=== PATIENT | female | born 1975 | race Caucasian/White ===

== ENCOUNTER 2025-04-14 16:51 | Emergency (ER) | payer OTHER, SELFPAY ==
--- NOTE | 2025-04-14 17:04 | ED.GENADULT ---
HPI - General Adult General Date Seen: 04/14/25 Chief complaint: Abdominal Pain Stated complaint: abdominal pain Time Seen by Provider: 04/14/25 17:03 History of Present Illness HPI narrative: 50-year-old female brought to the ER today by EMS for evaluation of abdominal pain. Report from the patient is limited because of pain. She is able to tell me that she is started experiencing generalized abdominal pain this morning. She is from [address] [place] [address] but came to [place] to have lunch with a friend any way. Pain got worse this afternoon. She apparently called 911 from a gas station because she was having severe abdominal pain. She also tells me that she is on low-dose naltrexone for her fibromyalgia and so that she needs high doses of opiates to manage her pain. She is able to tell me that she has frequent small bowel obstructions. She says she has had many surgeries. She is not able to tell me which surgeries. When asked about medication allergies (thinking about what meds are safe to administer for her pain) she tells me she is allergic to morphine but that causes itchiness. She denies any other allergies. Not able to get further history because she is moaning in pain and rocking with holding her abdomen. Further history... Related Data Home Medications ?Medication ?Instructions ?Recorded ?Confirmed cetirizine 10 mg chewable tablet 10 mg PO DAILY 04/14/25 04/14/25 (Zyrtec) duloxetine 60 mg capsule,delayed 60 mg PO DAILY 04/14/25 04/14/25 release sprinkle gabapentin 300 mg capsule 300 mg PO DAILY 04/14/25 04/14/25 hydroxyzine HCl 25 mg tablet 25 mg PO QHS 04/14/25 04/14/25 lamotrigine 100 mg tablet 125 mg PO DAILY 04/14/25 04/14/25 meloxicam 15 mg tablet 15 mg PO DAILY 04/14/25 04/14/25 tizanidine 4 mg capsule 4 mg PO QHS 04/14/25 04/14/25 topiramate 100 mg capsule,extended 100 mg PO DAILY 04/14/25 04/14/25 release 24 hr Allergies Allergy/AdvReac Type Severity Reaction Status Date / Time Opioids - Morphine Analogues Allergy Intermediate Hives Verified 04/15/25 00:49 PFSH PFSH Social History Smoking Status: Unknown if ever smoked Non-prescribed substance use: denies use Exam Narrative: Exam Narrative: Constitutional: initially, she is moaning and writhing in pain. Difficult to get a very good history but after pain and nausea meds I am able to get a better history and physical. Overall,mushtaq ppears well-developed and well-nourished. Alert. Conversant. Non toxic. HENT: Head: Atraumatic. Nose: Nose normal. Mouth/Throat: Oral mucosa is clear and moist. no trismus. No trismus Eyes: Conjunctivae normal. EOM normal. Pupils equal, round, and reactive to light. No scleral icterus. Neck: Normal range of motion. Neck supple. No tracheal deviation present. Cardiovascular: Normal rate, regular rhythm. No gallop. No friction rub. No murmur heard. Symmetric radial artery pulses Pulmonary/Chest: Effort normal. No stridor. No respiratory distress. No wheezes. No rales. No rhonchi . No tenderness. Abdominal: Soft. Bowel sounds normal. Positive tympany and distension. No mass. Left lower quadrant and suprapubic> right lower quad tenderness. Minimal upper tenderness. No rebound. No guarding. Multiple healed abdominal incisions. No CVA tenderness Musculoskeletal: RUE: Normal range of motion. No tenderness. No deformity LUE: Normal range of motion. No tenderness. No deformity RLE: Normal range of motion. No edema. No tenderness. No deformity LLE: Normal range of motion. No edema. No tenderness. No deformity Neurological: Alert and oriented to person, place, and time. Normal strength. CN II-VII intact. No sensory deficit. GCS eye subscore is 4. GCS verbal subscore is 5. GCS motor subscore is 6. Normal coordination Skin: Skin is warm and dry. No rash noted. No pallor. Normal capillary refill. Psychiatric: Normal mood. Normal affect. Const: Vital Signs, click to edit/add: Vital Signs - 24 hr 04/14/25 17:19 04/14/25 18:45 04/14/25 21:21 Temperature 97.1 F L Pulse Rate 91 86 Pulse Rate [Pulse Oximeter] 80 Respiratory Rate 22 14 16 Blood Pressure 137/77 149/108 H Blood Pressure [Ri ght Upper Arm] 132/90 H Pulse Oximetry 99 99 95 Oxygen Delivery Me thod Room Air Room Air Room Air 04/14/25 23:44 04/14/25 23:45 04/15/25 00:00 Temperature Pulse Rate 81 84 80 Pulse Rate [Pulse Oximeter] Respiratory Rate Blood Pressure Blood Pressure [Ri ght Upper Arm] Pulse Oximetry 96 98 96 Oxygen Delivery Me thod Course Course ED Course: [address] Arango. + SBO with transition point in mid pelvis. Small bowel intussuception as transition point. Surgery Dr. Troy. requests labs and old records. no need for emergent surgery Reevaluation(s) Reevaluation #1: Recheck-still having some pain but much improved compared to arrival. Nausea had not improved after Zofran but has now improved quite a bit after droperidol. Patient feeling better. Able to get a better abdominal exam. Reevaluation #2: Recheck-discussed with General surgery again. She recommends transfer Recheck checked patient. She is resting more comfortably. No further vomiting. Reevaluation #3: Recheck test discussed with hospitalist at [facility]. Excepted. They asked me to also speak to General surgery Recheck-patient having increasing pain. Repeat Dilaudid ordered Recheck-discussed with general surgeon from [facility]. She agrees the transfer is appropriate. Patient is refusing NG tube placement so will have to be withheld. Denied any vomiting now for couple of hours (after received droperidol). Still having some pain. Additional Reevaluation(s): Recheck-transfers delayed due to time for bed assignment [facility]. Recheck -1245. Patient is finally transferred by EMS to [facility]. Vital Signs Vital signs: Initial Vital Signs Temperature 97.1 F L 04/14/25 17:19 Temperature Source Temporal Artery Scan 04/14/25 17:19 Pulse Rate 80 04/14/25 17:19 Respiratory Rate 22 04/14/25 17:19 Blood Pressure 132/90 H 04/14/25 17:19 Blood Pressure Mean 104 04/14/25 17:19 Pulse Oximetry 99 04/14/25 17:19 Oxygen Delivery Method Room Air 04/14/25 17:19 Vital Signs Temperature 97.1 F L 04/14/25 17:19 Pulse Rate 80 04/14/25 17:19 Respiratory Rate 22 04/14/25 17:19 Blood Pressure 132/90 H 04/14/25 17:19 Pulse Oximetry 99 10/28/25 17:19 Oxygen Delivery Method Room Air 04/14/25 17:19 Temperature 97.1 F L 04/14/25 17:19 Pulse Rate 80 04/15/25 00:00 Respiratory Rate 16 04/14/25 21:21 Blood Pressure 149/108 H 04/14/25 21:21 Pulse Oximetry 96 04/15/25 00:00 Oxygen Delivery Method Room Air 04/14/25 21:21 Medications Administered Medications: Discontinued Medications Generic Name Dose Route Start Last Admin Trade Name Freq PRN Reason Stop Dose Admin Droperidol 2.5 mg 04/14/25 17:39 04/14/25 17:44 Droperidol 2.5 Mg/Ml Inj IV 04/14/25 17:40 2.5 mg ONCE ONE Administration Hydromorphone HCl 1 mg 04/14/25 17:10 04/14/25 17:34 Hydromorphone 0.5 Mg/0.5 Ml Inj IVP 04/14/25 17:11 Not Given ONCE ONE Hydromorphone HCl 1 mg 04/14/25 17:22 04/14/25 17:23 Hydromorphone 0.5 Mg/0.5 Ml Inj IVP 04/14/25 17:23 1 mg ONCE ONE Administration Hydromorphone HCl 0.5 mg 04/14/25 23:09 04/14/25 23:12 Hydromorphone 0.5 Mg/0.5 Ml Inj IVP 0.5 mg Q1H PRN Administration Pain Sodium Chloride 1,000 mls @ 1,000 mls/hr 04/14/25 17:15 04/14/25 18:28 0.9 % Sodium Chloride 1000 Ml IV 04/14/25 18:14 Infused .Q1H JEANETTE Infusion Sodium Chloride 1,000 mls @ 150 mls/hr 04/14/25 20:45 04/14/25 20:45 0.9 % Sodium Chloride 1000 Ml IV 150 mls/hr .Q6H40M JEANETTE Administration Ondansetron HCl 4 mg 04/14/25 17:10 04/14/25 17:30 Ondansetron 2 Mg/Ml Inj IVP 04/14/25 17:11 4 mg ONCE ONE Administration Medical Decision Making [facility] Narrative Medical decision making narrative: 50-year-old female presenting to the ER today for generalized abdominal pain and vomiting. She has a past surgical history including Tello-en-Y gastric bypass, done 20 years ago at [facility] in [place]. She also has had 3 C sections, cholecystectomy, 1 large laparotomy for previous bowel obstruction, possible bowel resection. She has also had an abdominal wall surgery. She also apparently has a history of small-bowel obstructions in the past. She is concerned that her presenting symptoms might be another small bowel obstruction. The differential diagnosis of abdominal pain includes: Appendicitis, Bowel Obstruction, Ulcer, Ischemia, Cholecystitis, Diverticulitis, Pancreatitis, UTI, kidney stone, Enteritis/Colitis, amongst many other etiologies. []Laboratory testing does not reveal a cause for the patient's pain. Laboratory workup is reassuring. Lipase is mildly elevated but I think that is likely due to repetitive vomiting rather than acute pancreatitis since she does not have any radiologic findings of pancreatitis and there is an alternative explanation for pain, namely bowel obstruction. CT scan does confirm small bowel obstruction. No evidence for perforation, free air, abscess, or bowel ischemia at this time. Discussed with radiologist by phone in the indicate they think it is of small bowel obstruction related to intussusception with a transition point in the pelvis. I did review this with General surgery who reviewed the images as well and they wonder if this is actually a bowel obstruction related to and previous bowel anastomotic site. General surgery confirms that no emergent surgery is necessary. However, general surgery recommends transfer to a larger facility where bariatric surgery service is available for consultation. Given the patient's surgical history, if this obstruction progresses to need operation, she would be very complex operation and that would be best done at a larger center Discussed recommendation of General surgery with the patient. She actually lives in [place], [place]. She does not really think it will be helpful to transfer back there because she says typically when she has a small bowel obstruction no clear she gets [place] way [place] to [place]. She would agree with transfer [facility] a [facility] as that is at least a little bit closer to home for her. Ideally we would look for a facility in the [facility] immature We did contact [facility] and there was no availability. There is also no availability at other hospitals in these [facility], [place] including [place]. Through the [facility] we were able to get an available bed [facility]. Patient is discussed with the hospitalist at [facility] and then with a general surgeon evidently both agree that transferred [facility] is reasonable. Plan will be to transfer by EMS for comfort, probable need for repeat pain meds and route, NG tube suction, IV hydration. Lab Data Labs: Lab Results 04/14/25 04/14/25 Range/Units 17:44 18:50 WBC 5.90 (4.50-11.00) K/uL RBC 4.01 (4.00-5.20) m/uL Hgb 12.3 (12.0-16.0) gm/dL Hct 38.0 (33.0-51.0) % MCV 95 (80-100) fL MCH 31 (26-34) pg MCHC 32 (32-36) gm/dL RDW Coeff of [place]lin 12.8 (11.5-15.5) % Plt Count 235 (140-440) K/uL Neut % (Auto) 82.5 H (42.0-72.0) % Lymph % (Auto) 5.3 L (20-44) % Cocke % (Auto) 8.3 (0.0-11.0) % Eos % (Auto) 2.7 (0.0-7.0) % Baso % (Auto) 0.5 (0.0-3.0) % Neut # (Auto) 4.90 (1.7-7.0) K/uL Lymph # (Auto) 0.30 L (0.90-2.90) K/uL Cocke # (Auto) 0.50 (0.00-0.90) K/UL Eos # (Auto) 0.16 (0.00-0.50) K/uL Baso # (Auto) 0.03 (0.00-0.30) K/uL Abs Immat Gran (auto) 0.04 (0.00-0.30) K/uL Imm/Tot Granulo (auto) 0.7 % Sodium 141 (135-149) mmol/L Potassium 4.0 (3.6-5.1) mmol/L Chloride 109 (96-114) mmol/L Carbon Dioxide 25 (20-32) mmol/L Anion Gap 7 (7-15) mEq/L BUN 12 (7-30) mg/dL Creatinine 0.8 (0.5-1.5) mg/dL Estimated Creat Clear 74.02 Estimated GFR 89 ml/min Glucose 96 (60-115) mg/dL Lactate 0.6 (0.5-1.9) mmol/L Calcium 9.4 (8.4-10.6) mg/dL Total Bilirubin 0.8 (0.1-1.5) mg/dL AST 44 H (12-35) U/L ALT 51 H (4-35) U/L Alkaline Phosphatase 82 (40-150) U/L C-Reactive Protein 0.7 (0.5-1.0) mg/dL Total Protein 6.6 (6.0-8.3) g/dL Albumin 3.8 (3.3-5.0) g/dL Lipase 731 H (23-300) U/L HCG, Qual Negative (Negative) Urine Color Yellow (Yellow) Urine Appearance Clear (Clear) Urine pH 6.5 (5.0-8.5) Ur Specific [place] 1.015 (1.000-1.030) Urine Protein Negative (Negative) Urine Glucose (UA) Negative (Negative) Urine Ketones Trace A (Negative) Urine Blood Negative (Negative) Urine Nitrite Negative (Negative) Urine Bilirubin Negative (Negative) Urine Urobilinogen 0.2 (0.2-1.0) Ur Leukocyte Esterase Negative (Negative) Urine RBC 0-2 (0-2) Urine WBC 0-2 (0-5) Ur Squamous Epith Cells None (None-Few) Urine Bacteria None (None) Ethyl Alcohol < 0.01 (0.01-0.03) % Imaging Data CT scan - abdomen: Attestation: I have reviewed the pertinent imaging results. Radiologist's impression: IMPRESSION: 1. Distal small bowel obstruction with transition point within the pelvis, likely related to intussusception involving ileal or jejunal bowel loops. Findings were communicated to Dr. Hutchinson at 6:38 p.m. on 04/14/2025. 2. Minimal free fluid in pelvis. 3. Severe colonic fecal retention. 4. Nonobstructing left lower pole nephrolithiasis. Discharge Plan Discharge Prescriptions: No Action gabapentin 300 mg capsule 300 mg PO DAILY meloxicam 15 mg tablet 15 mg PO DAILY hydroxyzine HCl 25 mg tablet 25 mg PO QHS cetirizine [Zyrtec] 10 mg tablet,chewable 10 mg PO DAILY tizanidine 4 mg capsule 4 mg PO QHS topiramate 100 mg capsule,extended release 24hr 100 mg PO DAILY duloxetine 60 mg capsule, delayed rel sprinkle 60 mg PO DAILY lamotrigine 100 mg tablet 125 mg PO DAILY Follow Up/Referrals: Provider,Not a Local [Primary Care Provider, Family Practice]
--- NOTE | 2025-04-14 17:10 | CRLHL7_ITS ---
For Patients: As a result of the Century Cures Act, medical imaging exams and procedure reports are released immediately into your electronic medical record. You may view this report before your referring provider. If you have questions, please contact your health care provider. INDICATION: Generalized abdominal pain, history of small-bowel obstruction, fibromyalgia. TECHNIQUE: CT abdomen and pelvis acquired with 69 cc Isovue 370 IV contrast. COMPARISON: None. FINDINGS: Lower chest: Unremarkable. Liver: Normal in size and attenuation. No suspicious masses. Gallbladder and bile ducts: Status post cholecystectomy. Pancreas: No mass or inflammation. Spleen: Normal in size. No masses. Adrenal glands: No suspicious mass. Kidneys: Bilateral kidneys are normal in size with symmetric enhancement. Nonobstructing left lower pole nephrolithiasis measuring 4 millimeter. No hydronephrosis. GI tract: There is significant dilatation of the small bowel loops with a transition point appears within the pelvis. There appears to be a small bowel small bowel intussusception, possibly involving the ileal or jejunal bowel loops as seen on series number 4/66. Severe colonic fecal retention is identified. Postsurgical changes of bowel loops in the left mid abdomen is seen. Vasculature: Abdominal aorta is normal in caliber. Minimal atherosclerosis. Lymph nodes: No lymphadenopathy. Peritoneum/Abdominal Wall: No free air or significant free fluid. Pelvis: Small volume of free fluid in the pelvis. No free air. Bones: Spinal fusion at L4-5 level. Multilevel degenerative changes of the lumbar spine. IMPRESSION: 1. Distal small bowel obstruction with transition point within the pelvis, likely related to intussusception involving ileal or jejunal bowel loops. Findings were communicated to Dr. Hutchinson at 6:38 p.m. on 04/14/2025. 2. Minimal free fluid in pelvis. 3. Severe colonic fecal retention. 4. Nonobstructing left lower pole nephrolithiasis. Please note that all CT scans at this facility use dose modulation, iterative reconstruction, and/or weight-based dosing when appropriate to reduce radiation dose to as low as reasonably achievable. Dictated by Kun Arango MD @ 04/14/2025 6:41:22 PM (Electronically Signed)
[2025-04-14 17:19] VITALS: BP 132/90; PULSE 80; RESP 22; TEMP 36.2; O2SAT 99; BMI 23.3
[2025-04-14] MEDS: ONDANSETRON 2 MG/ML inj 4 MG IVP (17:30)
[2025-04-14 17:48] LABS: Lactate* 0.6 mmol/L (0.5-1.9)
[2025-04-14 17:51] LABS: Hematocrit* 38.0 % (33.0-51.0); Hemoglobin* 12.3 gm/dL (12.0-16.0); Immature Granulocytes Abs Auto 0.04 K/uL (0.00-0.30); Immature Granulocytes Pct Auto 0.7 %; Mean Corpuscular HGB Conc 32 gm/dL (32-36); Mean Corpuscular Hemoglobin 31 pg (26-34); Mean Corpuscular Volume 95 fL (80-100); RDW Coefficient of Variation % 12.8 % (11.5-15.5); Red Blood Count* 4.01 m/uL (4.00-5.20); White Blood Count* 5.90 K/uL (4.50-11.00)
[2025-04-14 17:52] LABS: Lymphocytes Absolute Auto 0.30 K/uL (0.90-2.90)
[2025-04-14 17:53] LABS: Slide Review Reflex No
[2025-04-14 18:28] LABS: Albumin* 3.8 g/dL (3.3-5.0); Chloride* 109 mmol/L (96-114); Potassium* 4.0 mmol/L (3.6-5.1); Sodium* 141 mmol/L (135-149)
[2025-04-14 18:30] LABS: Alanine Aminotransferase* 51 U/L (4-35); Aspartate Amino Transferase* 44 U/L (12-35); Blood Urea Nitrogen* 12 mg/dL (7-30); Creatinine* 0.8 mg/dL (0.5-1.5); Est. Creatinine Clearance* 74.02; Estimated Glomerular Filt Rate 89 ml/min
[2025-04-14 18:31] LABS: Alkaline Phosphatase* 82 U/L (40-150); Anion Gap 7 mEq/L (7-15); Bilirubin Total* 0.8 mg/dL (0.1-1.5); Calcium* 9.4 mg/dL (8.4-10.6); Carbon Dioxide* 25 mmol/L (20-32); Glucose* 96 mg/dL (60-115); Total Protein* 6.6 g/dL (6.0-8.3)
[2025-04-14 18:45] VITALS: BP 137/77; PULSE 91; RESP 14; O2SAT 99
[2025-04-14 19:03] LABS: Ethanol* < 0.01 % (0.01-0.03)
[2025-04-14 19:20] LABS: HCG Qualitative Serum* Negative (Negative)
--- OUTSIDE RECORDS SUMMARY | 2025-04-14 19:52 | XMS_ITS | Clinical Summary ---
Author Organization [facility] Address [address] [place] [address] Care Team Providers Care Rigging Up Man Name Role Phone Elsewhere, Pcp Primary Care Provider Unavailabl e Source Comments Patient records contain information from all sites at [facility]. For routine questions regarding patient records, call [phone] during business hours, M-F 8:00 AM - 5:00 PM Central Time. Record requests for emergency care only can be directed to [phone] at any time.[facility] Allergies Active Allergy Reactions Criticality Noted Date Comments Morphine Itching 06/27/2012 verified Medications * This document contains information received from the source organization and may not represent a complete record from that organization. albuterol (for_PROVENTIL HFA,VENTOLIN HFA) 90 mcg/actuation inhaler albuterol 90 mcg/inh inhalation aerosol with adapter 08/25/19 10 Active cetirizine (ZyrTEC) 10 mg tablet Take 1 tablet by mouth daily as needed. 08/05/19 10 Active fluticasone (for_FLONASE) 50 mcg/actuation nasal spray 2 sprays daily as needed. 08/25/19 10 Active omeprazole (for_PriLOSEC) 40 mg capsule Take by mouth every morning before breakfast. 08/25/19 10 Active meloxicam (for_MOBIC) 15 mg tablet Take 15 mg by mouth daily. 1 04/25/20 17 Active gabapentin (NEURONTIN) 300 mg capsule Take 600 mg by mouth 4 (four) times a day. 2 11/01/19 19 Active tiZANidine (ZANAFLEX) 4 mg tablet Take 8 mg by mouth 3 (three) times a day as needed for muscle spasms. 0 11/01/19 19 Active nystatin (MYCOSTATIN) 100,000 unit/gram cream PATRICIA TOPICALLY TO BODY FOLDS BID DURING FLARES 3 11/27/19 19 Active RESTASIS 0.05 % ophthalmic emulsion Administer 1 drop into both eyes 2 (two) times a day. 6 04/09/20 19 Active topiramate (TOPAMAX) 100 mg tablet 100 mg 4 (four) times a day. 2 03/25/20 19 Active nitrofurantoin monohydrate (MACROBID) 100 mg capsule Take 100 mg by mouth daily. 01/27/20 21 Active Flovent HFA 44 mcg/actuation inhaler Inhale 1 puff 2 (two) times a day as needed. 02/21/20 21 Active ProChamber spacer See Admin Instructions. 06/22/19 22 Active naltrexone HCl (NALTREXONE ORAL) Take 6 mg by mouth every morning. 11/19/19 22 Active methylPREDNISo lone (MEDROL DOSEPAK) 4 mg tablet See Admin Instructions. follow package directions 11/02/19 23 Active ferrous sulfate 325 mg (65 mg iron) tablet Take 325 mg by mouth daily. 09/14/19 24 Active pantoprazole (Protonix) 40 mg EC tablet 40 mg. 01/13/20 25 Active DULoxetine (Cymbalta) [address] capsule Take 1 capsule by mouth daily. 04/06/20 25 Active LORazepam (Ativan) 1 mg tabletIndicati ons:Anxiety Generalized Disorder Take 0.5-1 tablets (0.5-1 mg total) by mouth daily as needed for anxiety (sleep). Must last 30 days. 15 tablet 04/10/20 25 Active buPROPion (Wellbutrin SR) 200 mg 12 hr tabletIndicati ons:Depression Major Recurrent Moderate (HCC) Take 1 tablet (200 mg total) by mouth 2 (two) times a day. 60 tablet 5 04/10/20 25 Active lamoTRIgine (LaMICtaL) 100 mg tabletIndicati ons:Depression Major Recurrent Moderate (HCC) Take 1 tablet (100 mg total) by mouth 2 (two) times a day. 60 tablet 5 04/10/20 25 Active lamoTRIgine (LaMICtaL) 25 mg tabletIndicati ons:Depression Major Recurrent Moderate (HCC) Take 1 tablet (25 mg total) by mouth 2 (two) times a day. 60 tablet 5 04/10/20 25 Active hydrOXYzine (Atarax) 25 mg tabletIndicati ons:Anxiety Generalized Disorder Take 1-2 tablets (25-50 mg total) by mouth at bedtime as needed for anxiety (sleep). 30 tablet 1 04/10/20 25 Active melatonin 10 mg tablet Take 1 tablet (10 mg total) by mouth at bedtime as needed (sleep). 04/10/20 25 Active hydrOXYzine (Atarax) 25 mg tablet TAKE 2 TABLETS BY MOUTH DAILY AT BEDTIME NEEDED FOR SLEEP 025 Discontinued(Re order) Savella 50 mg tablet Take 1 tablet by mouth 2 (two) times a day. 10/04/19 25 025 Discontinued buPROPion (Wellbutrin SR) 200 mg 12 hr tabletIndicati ons:Depression Major Recurrent Moderate (HCC) Take 1 tablet (200 mg total) by mouth 2 (two) times a day. 60 tablet 5 10/11/19 25 025 Discontinued(Re order) lamoTRIgine (LaMICtaL) 100 mg tabletIndicati ons:Depression Major Recurrent Moderate (HCC) Take 1 tablet (100 mg total) by mouth 2 (two) times a day. 60 tablet 5 10/11/19 25 025 Discontinued(Re order) lamoTRIgine (LaMICtaL) 25 mg tabletIndicati ons:Depression Major Recurrent Moderate (HCC) Take 1 tablet (25 mg total) by mouth 2 (two) times a day. 60 tablet 5 10/11/19 25 025 Discontinued(Re order) LORazepam (Ativan) 1 mg tabletIndicati ons:Anxiety Generalized Disorder Take 0.5-1 tablets (0.5-1 mg total) by mouth daily as needed for anxiety. 15 tablet 03/05/20 25 025 Discontinued(Re order) Active Problems Problem Noted Date Diagnosed Date Pannus Abdominal 04/04/2023 Problem Relational Parent Child 08/27/2018 Overview (08/27/2018): Struggling with parenting of her middle school age children. Diarrhea 11/18/2016 Anxiety Generalized Disorder 11/01/2012 Depression Major Recurrent Moderate 08/08/2011 Overview (08/27/2018): Major depressive disorder, recurrent episode, moderately severe Assessment & Plan (08/27/2018 5:45 PM CDT): Retrial of augmentation with bupropion SR Fibromyalgia 04/14/2011 Asthma NOS 08/02/2009 Overview (11/07/2016): Asthma Primary Osteoarthritis Spine 08/02/2009 Other Chronic Pain 08/02/2009 Hypoglycemia 08/02/2009 Resolved Problems Problem Noted Date Diagnosed Date Resolved Date Depression/Janet/Bipolar NOS 06/12/2013 07/03/2017 Overview (11/07/2016): Mood disorder NOS Immunizations Immunization Administration Dates Next Due DT, Pediatric 08/05/1999 H1N1 All Forms 07/06/2009 H1N1 Inj 07/06/2009 HepA Adult 02/05/2006,07/19/2005 HepA, Unspecified 02/05/2006,07/19/2005 Influenza, Injectable, Mdck, Preservative Free, Quadrivalent 06/24/2019 Influenza, Seasonal, Injectable 03/18/20 15,03/16/2014,02/28/2013,2011,03/23/2011,05/17/2010,07/06/2009,1 ,06/20/2006,04/05/2005 Influenza, Unspecified 07/04/2021,2019,03/18/2015,2013,02/28/2013,04/10/2012,03/23/2011,1 07/17/2009,07/06/2009,04/01/2008, 007,04/05/2005 MMR 12/11/2003 Td Preservative Free (TENIVA C, DECAVAC) 04/05/2005 Td, (Adult) Unspecified 04/05/2005 Tdap 08/24/2012 Ty21a (oral) 10/26/2005 Typhoid, Unspecified 10/26/2005 Family History Medical History Relation Name Comments Anxiety disorder Father Ray Hyperlipidemia (high cholesterol) Father Ray Hypertension Father Ray Arthritis Mother Bridget Asthma Mother Bridget Depression Mother Bridget Diabetes Mother Bridget Type2 Hyperlipidemia (high cholesterol) Mother Bridget Hypertension Mother Bridget Migraines Mother Bridget Obesity Mother Bridget Osteoporosis Mother Bridget Sleep apnea Mother Bridget Thyroid disease Mother Bridget Relation Name Status Comments Father Clint Alive Mother Bridget Alive Social History Tobacco Use Types Packs/Day Years Used Date Smoking Tobacco: Former Cigarettes 0.5 21.7 0 06/18/1990 - 03/03/2012 Smokeless Tobacco: Never Tobacco Cessation:Counseling Given: Not Answered Comments:02/14/23: Quit smoking 5 months ago Alcohol Use Standard Drinks/Week Comments Yes 4 (1 standard drink = 0.6 oz pure alcohol) 04/10/25 - occasional a couple drinks on the weekends [facility] [employer] Answer Date Recorded In the past 12 months has [facility] Xtime, oil, or water [employer] threatened to shut off services in your home? Yes 10/12/2023 Humiliation, Afraid, Rape, and Kick questionnair e Answer Date Recorded Within the last year, have y ou been afraid of your partner or ex-partner? No 11/10/2022 Within the last year, have y ou been humiliated or emotionally abused in other ways by your partner or ex-partner? No Within the last year, have y ou been kicked, hit, slapped, or otherwise physically hurt by your partner or ex-partner? No 11/10/2022 Within the last year, have y ou been raped or forced to have any kind of sexual activity by your partner or ex-partner? No 11/10/2022 Hunger Vital Sign Answer Date Recorded Within the past 12 months, y ou worried that your food would run out before you got the money to buy more. Sometimes true Within the past 12 months, t he food you bought just didn't last and you didn't have money to get more. Never true PRAPARE - Transportation Answer Date Re corded In the past 12 months, has l ack of transportation kept you from medical appointments or from getting medications? No 09/17 In the past 12 months, has l ack of transportation kept you from meetings, work, or from getting things needed for daily living? No 10/12/2023 Depression Answer Date Recor ded PHQ-9 Total Score (max 27) 11 10/10 Housing Stability Answer Date Recorded What is your living situation today? I have a [facility] place to live 10/12/2023 Education Answer Date Recorded What is the highest level of school you have completed or the highest degree you have received? 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 Gender Identity Female 03/08/2021 6:36 AM CDT Sexual Orientation Straight 03/08/2021 6: 36 AM CDT Last Filed Vital Signs Vital Sign Reading Time Taken Comments Blood Pressure 138/84 04/10/2025 2:11 PM CDT Pulse 96 04/10/2025 2:11 PM CDT Temperature 36.2 C (97.2 F) 04/17/2023 12:04 PM CDT Respiratory Rate 11 04/17/2023 2:30 PM CDT Oxygen Saturation 99% 04/17/2023 2:30 PM CDT Inhaled Oxygen Concentration - - Weight 64.5 kg (142 lb 4.9 oz) 04/10/2025 2:11 P M CDT Height 165.1 cm (5' 5) 04/04/2023 9:06 AM CDT Body Mass Index 23.68 04/04/2023 9:06 AM CDT Plan of Treatment Health Maintenance Due Date Last Done Comments CT Colonography 1973 Cervical/Vaginal Cancer Screening 1975 Cologuard 1975 Colonoscopy 1973 Colorectal Cancer Screening 1973 FIT 1975 Hepatitis C Screening 1975 Mammogram 1973 Tobacco Cessation counseling 1973 Hepatitis B Vaccines (1 of 3 - 19+ 3-dose series) 01/10/1992 Pneumococcal vaccine (50+ years) (1 of 2 - PCV) 01/10/1992 Lipid (Cholesterol) Screening 03/18/2020 03/18/2015 (Performed elsewhere) Depression Monitoring (PHQ-9) 02/09/2025 10/10/2024 COVID-19 Vaccine ( season) 2025 07/11/2024, 10/06/2020, 09/08/2020 Fasting Glucose for Diabetes Screening 04/17/2026 04/17/2023, 04/17/2023 DTaP,Tdap,and Td Vaccines (6 - Td or Tdap) 04/13/2033 04/13/2023, 08/24/2012, 04/05/2005, Additional history exists Hepatitis A Vaccines Completed 02/05/2006, 02/05/2006, 07/19/2005, Additional history exists Depression Monitoring (PHQ-9 for quality tracking) Completed 10/13/2024 Influenza Vaccine Completed 03/09/2025, , 07/04/2021, Additional history exists Zoster Vaccines Completed 03/09/2025, 07/11/2024 IPV Vaccines Aged Out No longer eligi ble based on patient's age to complete this topic Procedures Procedure Name Priority Date/Time Associated Diagnosis Comments BMP WITH HGB/HCT, POCT, B STAT 04/17/2023 12:09 PM CDT from Last 3 Months or Most Recently Relevant to Health Maintenance Results * (ABNORMAL) BMP with Hgb/Hct, POCT (04/17/2023 12:09 PM CDT) BUN (Blood Urea Nitrogen), POCT, B 11 6 - 21 mg/dL 04/17/2023 12:09 PM CDT [facility] Chloride, POCT, B 110(H) 98 - 107 mmol/L 04/17/2023 12:09 PM CDT [facility] Creatinine, POCT, B 0.9 0.6 - 1.0 mg/dL 04/17/2023 12:09 PM CDT [facility] Estimated GFR (eGFR), POCT 78 >=60 mL/min/BSA 04/17/2023 12:12 PM CDT [facility] Comment: Estimated GFR calculated using the 2020 CKD_EPI creatinine equation. Glucose, POCT, B 79 70 - 140 mg/dL 04/17/2023 12:09 PM CDT [facility] Calcium, Ionized, POCT, B 5.20 4.65 - 5.30 mg/dL 04/17/2023 12:09 PM CDT [facility] Potassium, POCT, B 4.1 3.6 - 5.2 mmol/L 04/17/2023 12:09 PM CDT [facility] Sodium, POCT, B 143 135 - 145 mmol/L 04/17/2023 12:09 PM CDT [facility] Total CO2, POCT, B 25 22 - 29 mmol/L 04/17/2023 12:09 PM CDT [facility] Anion Gap, POCT, B 8 7 - 15 04/17/2023 12:09 PM CDT [facility] Hemoglobin, B 12.6 11.6 - 15.0 g/dL 04/17/2023 12:09 PM CDT [facility] Hematocrit, POCT, B 37.0 35.5 - 44.9 % 04/17/2023 12:09 PM CDT [facility] Blood (Blood, Venous) 04/17/2023 12:09 PM CDT 04/17/2023 12:09 PM CDT Venkata Cruz M.D., M.P.H. LAB POCT ORDERABLE S - DEVICE Final Result Performing Organization Address City/State/[facility] Co de Phone Number [facility] [address] [place] [address], [facility] [place] [address] from Last 3 Months or Most Recently Relevant to Health Maintenance Insurance * Guarantor: Kathrine Kamara Account Type Relation to Patient Date of Phone Billing Address Personal/Family Self 1975 [id number] [place] [address] [place] * Guarantor: Kathrine Kamara Account Type Relation to Patient Date of Phone Billing Address Third Republican Liability Self 1975 [id number] [place] [address] Care Teams Rigging Up Man Relationship Specialty Start Date End Date Elsewhere, Pcp PCP - General Internal Medicine 05/14/23
[2025-04-14 19:59] LABS: Appearance Urine Clear (Clear)
[2025-04-14 21:21] VITALS: BP 149/108; PULSE 86; RESP 16; O2SAT 95
[2025-04-14 23:44] VITALS: PULSE 81; O2SAT 96
[2025-04-14 23:45] VITALS: PULSE 84; O2SAT 98
[2025-04-15] VITALS: PULSE 80; O2SAT 96
== END 2025-04-15 01:12 | disposition short-term general hospital (02) ==
PROVIDERS: Emergency Provider Emergency Medicine
DX: K56.609 Unspecified intestinal obstruction, unspecified as to partial versus complete obstruction (principal); Z98.84 Bariatric surgery status
CPT/HCPCS: 36415; 74177; 80053; 81001; 82077; 83605; 83690; 84703; 85025; 86140; 96361; 96374; 96375; 99285; J1171; J1790; J2405; J7030; Q9967

== ENCOUNTER 2025-04-15 00:49 | Outpatient (CLI) | payer OTHER, SELFPAY | END 2025-04-15 00:50 | disposition home or self-care (01) | LOC: AMB 04-16 08:59 | PROVIDERS: Visit Provider Family Medicine | DX: K56.609 Unspecified intestinal obstruction, unspecified as to partial versus complete obstruction (principal) | CPT/HCPCS: A0425; A0433 ==